=== PATIENT | female | born 1950 | race African-American/Black ===

== ENCOUNTER 2022-05-25 08:06 | Day surgery (SDC) | payer OTHER ==
[2022-05-22 15:31] VITALS: BMI 31.1
[2022-05-25 09:23] VITALS: PULSE 65; TEMP 97.8
[2022-05-25 09:46] VITALS: BP 110/68; RESP 18
== END 2022-05-25 09:58 | disposition home or self-care (01) ==
LOC: FASU-ENDO 08:06
PROVIDERS: ATTEND Internal Medicine Gastroenterology
PROC: 0DJD8ZZ Inspection of Lower Intestinal Tract, Via Natural or Artificial Opening Endoscopic (ICD-10-PCS; principal; 2022-05-25 08:41)
DX: Z12.11 Encounter for screening for malignant neoplasm of colon (principal)
CPT/HCPCS: 82962